=== PATIENT | female | born 1955 | race Caucasian/White ===

== ENCOUNTER 2022-03-17 10:10 | Day surgery (SDC) | payer OTHER ==
[~2022-03-17] VITALS: Ht 157.5 cm; Wt 61.2 kg
[~2022-03-17 10:10] MED LIST: CEFAZOLIN SOD 2 GM in D5W 50 ML IV ONE
[2022-03-17] MEDS ORDERED: ONDANSETRON HCL 4 MG/2 ML VIAL IVP ONE (13:03)
[2022-03-17] MEDS ORDERED: DESFLURANE 15 MIN GAS INH ONE (13:03)
[2022-03-17] MEDS ORDERED: PROPOFOL 200MG/ 20ML VIAL (DIPRIVAN) IV ONE (13:03)
[2022-03-17] MEDS ORDERED: fentaNYL CITRATE 250 MCG/5 ML AMP IV ONE (13:03)
[2022-03-17] MEDS ORDERED: BUPIVACAINE /PF 0.5% 30 ML VIAL INJ ONE (13:03)
[2022-03-17] MEDS ORDERED: KETOROLAC TROMETHAMINE 30 MG VIAL IVP ONE (13:03)
[2022-03-17] MEDS ORDERED: LIDOCAINE 2%, 20 ML MDV INJ ONE (13:03)
[2022-03-17] MEDS ORDERED: SUGAMMADEX SODIUM 200 MG/2 ML VIAL IV ONE (13:03)
[2022-03-17] MEDS ORDERED: MIDAZOLAM HCL 5 MG/5 ML VIAL IVP ONE (13:03)
[2022-03-17] MEDS ORDERED: LR 1,000 ML IV.SOLN IV ONE (13:03)
[2022-03-17] MEDS ORDERED: ROCURONIUM BROMIDE 10 MG/ML (ZEMURON) IV ONE (13:03)
[2022-03-17] MEDS ORDERED: DEXAMETHASONE SOD PHOSPHATE 4 MG/ML VIAL IVP ONE (13:03)
[2022-03-17] MEDS ORDERED: ACETAMINOPHEN I.V. 1000 MG 100 ML IV ONE (13:39)
[2022-03-17] MEDS ORDERED: METOCLOPRAMIDE HCL 10 MG/2 ML VIAL IVP PRN (13:45)
[2022-03-17] MEDS ORDERED: LABETALOL 100 MG/ 20ML VIAL IVP PRN (13:45)
[2022-03-17] MEDS ORDERED: MIDAZOLAM HCL 2 MG/2 ML VIAL (VERSED) IVP PRN (13:45)
[2022-03-17] MEDS ORDERED: HYDROmorphone 1 MG/ML INJ. CARTRIDGE IVP PRN (13:45)
[2022-03-17] MEDS ORDERED: hydrALAZINE HCL 20 MG/ML VIAL IVP PRN (13:45)
[2022-03-17] MEDS ORDERED: MEPERIDINE HCL/PF 25 MG/ML DISP.SYRIN IVP PRN (13:45)
[2022-03-17] MEDS ORDERED: LR 1,000 ML IV SCH (13:45)
[2022-03-17] MEDS: HYDROmorphone 1 MG/ML INJ. CARTRIDGE IVP PRN ×3 (15:15→15:55)
[2022-03-17] MEDS ORDERED: HYDROmorphone 1 MG/ML INJ. CARTRIDGE ONE ×2 (15:28→15:52)
[2022-03-17] MEDS ORDERED: METOCLOPRAMIDE HCL 10 MG/2 ML VIAL ONE (15:36)
[2022-03-17 17:16] VITALS: BP_SYST 111
== END 2022-03-17 18:40 | disposition home or self-care (01) ==
LOC: SDS 10:10 → SMU 10:11 → SDS 18:40
PROVIDERS: ATTEND Surgery
DX: K80.10 Calculus of gallbladder with chronic cholecystitis without obstruction (principal); E78.2 Mixed hyperlipidemia; Z90.710 Acquired absence of both cervix and uterus; Z90.49 Acquired absence of other specified parts of digestive tract; Z79.899 Other long term (current) drug therapy
CPT/HCPCS: 36415 ×2; 47562; 88304; 87426; U0003; J3490 ×2; J0690; J1100; J1885; J2001; J2765; J2250; J2405; J2704; J3010; J1170; J7060; J7120; C1727; J0131; Q9967